=== PATIENT | male | born 1990 | race Two or more races ===

== ENCOUNTER 2016-11-19 16:56 | Emergency (ER) | payer OTHER ==
[2016-11-19 17:23] VITALS: BP 119/70
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
== END 2016-11-19 17:36 | disposition home or self-care (01) ==
LOC: ER 16:56
DX: T22.112A Burn of first degree of left forearm, initial encounter (principal); T22.111A Burn of first degree of right forearm, initial encounter; W22.11XA Striking against or struck by driver side automobile airbag, initial encounter; V43.52XA Car driver injured in collision with other type car in traffic accident, initial encounter
CPT/HCPCS: 99283